=== PATIENT | female | born 1975 | race Caucasian/White ===

== ENCOUNTER → 2017-02-12 | Outpatient (CLI) | payer OTHER ==
[2017-02-12 12:54] VITALS: BP 146/78; PULSE 95; RESP 20; TEMP 98; BMI 51.0
[2017-02-12 14:58] LABS: HCT 42.4 % (34.0-46.0); HGB 13.6 gm/dL (11.4-16.0); MCH 28.7 pg (25.0-35.0); MCHC 32.1 g/dL (31.0-37.0); MCV 89.3 fL (80.0-100.0); Platelet Count 221 k/uL (150-450); RBC 4.75 m/uL (3.80-5.40); RDW 14.9 % (11.5-15.5); WBC 5.2 k/uL (3.8-10.6)
[2017-02-12 15:08] LABS: ALT 33 U/L (9-52); AST 21 U/L (14-36); Albumin 4.1 g/dL (3.5-5.0); Alkaline Phosphatase 52 U/L (38-126); Anion Gap 9 mmol/L; Blood Urea Nitrogen 14 mg/dL (7-17); Calcium 9.1 mg/dL (8.4-10.2); Carbon Dioxide 24 mmol/L (22-30); Chloride 104 mmol/L (98-107); Cholesterol 188 mg/dL (<200); Glucose 82 mg/dL (74-99); HDL Cholesterol 53 mg/dL (40-60); LDL Cholesterol,Calculated 104 mg/dL (0-99); Potassium 4.4 mmol/L (3.5-5.1); Sodium 137 mmol/L (137-145); Total Bilirubin 0.3 mg/dL (0.2-1.3); Total Protein 7.2 g/dL (6.3-8.2); Triglycerides 154 mg/dL (<150)
[2017-02-12 15:09] LABS: Appearance,Urine Clear (Clear); Bilirubin,Urine Negative (Negative); Blood,Urine Negative (Negative); Color,Urine Yellow; Glucose,Urine (UA) Negative (Negative); Ketones,Urine Trace (Negative); Leukocyte Esterase,Urine Negative (Negative); Nitrite,Urine Negative (Negative); PH, Urine 5.5 (5.0-8.0); Protein,Urine Trace (Negative); Specific Gravity,Urine 1.023 (1.001-1.035); Urobilinogen,Urine <2.0 mg/dL (<2.0)
[2017-02-13 00:06] LABS: Iron Saturation 10.73 (12.00-45.00)
[2017-02-13 00:16] LABS: Folate, Serum 7.9 ng/mL
[2017-02-13 00:28] LABS: Vitamin D 25 Hydroxy 14.4 ng/mL (30.0-100.0)
[2017-02-13 01:59] LABS: Hemoglobin A1C 5.3 % (4.0-6.0)
[2017-02-17 11:27] LABS: Anabasine Urine <2.0 ng/mL (<2.0)
--- NOTE | 2017-04-12 16:34 | P.HPBAR ---
Bariatric H&P - History & Physicial H&P Date: 02/12/17 History & Physicial: Visit/CC: 1st visit Patient initial contact: Initial weight: 130.861 kg Initial weight in pounds: 288.50 Height: 5 ft 3 in Initial BMI: 51.0 Last weight: Current weight: 130.861 kg Current weight in pounds: 288.50 Current BMI: 51.0 Villalba body weight (based on NIH guidelines): 52.163 kg Excess body weight loss: 0.0% The patient is a 41 year-old F who presents for Bariatric Assessment. DATE OF SERVICE: 02/12/2017 REASON FOR CONSULTATION: Initial bariatric evaluation. HISTORY OF PRESENT ILLNESS: The patient is a 41-year-old female who presents with history of long-standing morbid obesity. Her highest weight was 310 pounds for a 5 foot 3 frame. Her ideal body weight is 140 pounds. Her body mass index was 55.0. Today she comes in with moderate weight loss down to 288 pounds. Her lifetime weight loss is 22 pounds. She reports a family history morbid obesity on her father's side. No reports of stomach or esophageal cancer. No reports of DVTs. She denies any active gallbladder problems. She does report chronic lower back pain. She has history of knee pain. She also has sleep apnea. No reports of Crohn's or ulcerative colitis. She has history of chronic diarrhea. She denies any food ALLERGIES. No reports of lupus or multiple sclerosis. She has tried weight loss programs such as Adipex with at most weight loss of 20 pounds. Separately, she often skips breakfast. Her height of 5 foot 3, her ideal body weight is 140 pounds. She is 148 pounds overweight. Body mass index reduced from 55 down to 51.1. PAST MEDICAL HISTORY: 1. Morbid obesity. 2. Body mass index reduced from 55 down to 51.1. 3. Osteoarthritis of the knees. 4. Hypertensive heart disease. 5. Chronic lower back pain. 6. Obstructive sleep apnea. PAST SURGICAL HISTORY: 1. No abdominal surgeries. HOME MEDICATIONS: 1. Motrin. 2. Phentermine ALLERGIES: Denies. SOCIAL HISTORY: No active tobacco use. . FAMILY HISTORY: No family history of ulcerative colitis disease or Crohn's disease. Family history of morbid obesity. No lupus in family. No reports of stomach or esophageal cancer. REVIEW OF ORGAN SYSTEMS: CONSTITUTIONAL: Her height of 5 foot 3, her ideal body weight is 140 pounds. She is 148 pounds overweight. Body mass index reduced from 55 down to 51.1. Her highest weight was 310 pounds for a 5 foot 3 frame. Today she comes in with moderate weight loss down to 288 pounds. HEENT: Denies any active troubles with vision or hearing. No troubles with swallowing. ENDOCRINE: No diabetes. No hypothyroidism. CARDIOVASCULAR: No reports of palpitations or heart attacks or chest pain. History of hypertension. RESPIRATORY: Has daytime somnolence including snoring and sleep apnea. No asthma. GI: Denies any bright red blood per rectum. Does have gastroesophageal reflux disease as described above. MUSCULOSKELETAL: Has lower back pain and joint pain. Has osteoarthritis of the hips and knees. NEURO: No headaches. No seizure disorders. PSYCH: No depression without suicidal ideation. . RHEUMATOLOGIC: No lupus. No rheumatoid arthritis. HEMATOLOGIC: Denies any abnormal bleeding or bruising. No personal history of DVTs. SKIN: No rash. No skin cancer. PHYSICAL EXAM: VITAL SIGNS: Height 5 foot 3 inches, weight 288 pounds. BMI 51.1. Vital Signs Temp 98 F 02/12/17 13:47 Pulse 95 02/12/17 13:47 Resp 20 02/12/17 13:47 BP 146/78 02/12/17 13:47 Pulse Ox GENERAL: Well-developed in no acute distress. HEENT: No scleral icterus. Extraocular movements grossly intact. Hears conversational speech. No nasal drainage. NECK: Supple without lymphadenopathy. CHEST: Nonlabored respirations with equal bilateral excursions. CARDIOVASCULAR: Regular rate and regular rhythm. Distal 2+ pulses. ABDOMEN: Obese, soft, nontender, nondistended. MUSCULOSKELETAL: No clubbing, cyanosis. Gross strength 5/5 distal lower extremities. 1+ pre-tibial pitting edema. NEURO: No focal or lateralizing signs. Cranial nerves 2 through 12 grossly within normal limits. PSYCH: Appropriate affect. Alert and oriented to person, place and time. SKIN: Good skin turgor. Well perfused. ASSESSMENT: 1. Morbid obesity. 2. Body mass index reduced from 55 down to 51.1. 3. Osteoarthritis of the knees. 4. Hypertensive heart disease. 5. Chronic lower back pain. 6. Obstructive sleep apnea. 7. Positive tobacco exposure. 8. Hypertriglyceridemia. 9. Iron deficiency anemia. 10. Vitamin D deficiency. PLAN: 1. Surgical options including a band, gastric bypass, sleeve gastrectomy were described in detail. Alternatives such as gastric balloon including duodenal switch were described. 2. The [place] bariatric surgical collaborative data and outcomes calculator were described with surgical options. 3. Recommend a bariatric metabolic panel to evaluate for micro- including macronutrient deficiencies. 4. For history of daytime somnolence, recommend evaluation and treatment for sleep apnea. 5. Dietary surveillance and counseling was reviewed, I have asked increased protein intake to at least 60 grams daily. Approximately 10% weight loss recommended at least over 6 months down to 280 pounds. She has already lost 22 pounds. 6. Will need cardiac risk assessment. 7. Recommend medical risk assessment. 8. Psych assessment per insurance guidelines. 9. Follow up upon completion of upper endoscopy. 10. Recommend food journal. 11. Will need urine drug screen per insurance guidelines. 12. Recommend 12-lead EKG with history of hypertensive heart disease. 13. Recommend upper endoscopy for history of esophageal reflux disease. Thank you for this consultation. Laboratory Last Values WBC 5.2 k/uL (3.8-10.6) 02/12/17 14:28 RBC 4.75 m/uL (3.80-5.40) 02/12/17 14:28 Hgb 13.6 gm/dL (11.4-16.0) 02/12/17 14:28 Hct 42.4 % (34.0-46.0) 02/12/17 14:28 MCV 89.3 fL (80.0-100.0) 02/12/17 14:28 MCH 28.7 pg (25.0-35.0) 02/12/17 14:28 MCHC 32.1 g/dL (31.0-37.0) 02/12/17 14:28 RDW 14.9 % (11.5-15.5) 02/12/17 14:28 Plt Count 221 k/uL (150-450) 02/12/17 14:28 Sodium 137 mmol/L (137-145) 02/12/17 14:28 Potassium 4.4 mmol/L (3.5-5.1) 02/12/17 14:28 Chloride 104 mmol/L (98-107) 02/12/17 14:28 Carbon Dioxide 24 mmol/L (22-30) 02/12/17 14:28 Anion Gap 9 mmol/L 02/12/17 14:28 BUN 14 mg/dL (7-17) 02/12/17 14:28 Creatinine 0.80 mg/dL (0.52-1.04) 02/12/17 14:28 Est GFR (MDRD) Af Amer >60 (>60 ml/min/1.73 sqM) 02/12/17 14:28 Est GFR (MDRD) Non-Af >60 (>60 ml/min/1.73 sqM) 02/12/17 14:28 Glucose 82 mg/dL (74-99) 02/12/17 14:[address] Glu mg/dL 105 02/12/17 14:28 Hemoglobin A1c 5.3 % (4.0-6.0) 02/12/17 14:28 Calcium 9.1 mg/dL (8.4-10.2) 02/12/17 14:28 Iron 44 ug/dL (50-170) L 02/12/17 14:28 TIBC 410 ug/dL (228-460) 02/12/17 14:28 Iron Saturation 10.73 (12.00-45.00) L 02/12/17 14:28 Ferritin 11.4 ng/mL (10.0-291.0) 02/12/17 14:28 Total Bilirubin 0.3 mg/dL (0.2-1.3) 02/12/17 14:28 AST 21 U/L (14-36) 02/12/17 14:28 ALT 33 U/L (9-52) 02/12/17 14:28 Alkaline Phosphatase 52 U/L (38-126) 02/12/17 14:28 Total Protein 7.2 g/dL (6.3-8.2) 02/12/17 14:28 Albumin 4.1 g/dL (3.5-5.0) 02/12/17 14:28 Triglycerides 154 mg/dL (<150) H 02/12/17 14:28 Cholesterol 188 mg/dL (<200) 02/12/17 14:28 LDL Cholesterol, Calc 104 mg/dL (0-99) H 02/12/17 14:28 HDL Cholesterol 53 mg/dL (40-60) 02/12/17 14:28 Vitamin B1 39 ug/L (38-122) 02/12/17 14:28 Vitamin B12 270.0 pg/mL (200.0-944.0) 02/12/17 14:28 Vitamin D 25-Hydroxy 14.4 ng/mL (30.0-100.0) L 02/12/17 14:28 Folate 7.9 ng/mL 02/12/17 14:28 TSH 2.480 mIU/L (0.465-4.680) 02/12/17 14:28 Urine Color Yellow 02/12/17 14:28 Urine Appearance Clear (Clear) 02/12/17 14:28 Urine pH 5.5 (5.0-8.0) 02/12/17 14:28 Ur Specific [place] 1.023 (1.001-1.035) 02/12/17 14:28 Urine Protein Trace (Negative) H 02/12/17 14:28 Urine Glucose (UA) Negative (Negative) 02/12/17 14:28 Urine Ketones Trace (Negative) H 02/12/17 14:28 Urine Blood Negative (Negative) 02/12/17 14:28 Urine Nitrite Negative (Negative) 02/12/17 14:28 Urine Bilirubin Negative (Negative) 02/12/17 14:28 Urine Urobilinogen <2.0 mg/dL (<2.0) 02/12/17 14:28 Ur Leukocyte Esterase Negative (Negative) 02/12/17 14:28 Urine Cotinine 7.2 ng/mL (<5.0) H 02/12/17 14:28 Urine Nicotine 18.4 ng/mL (<2.0) H 02/12/17 14:28 Urine Anabasine <2.0 ng/mL (<2.0) 02/12/17 14:28 EKG EKG PERFORMED 02/12/17 14:28 Miscellaneous Test DrugScrn,Pain Manage 02/12/17 14:28 Misc Test Result See comment 02/12/17 14:28 Urine cotinine is positive. She will need strict tobacco cessation. She has hyper triglyceridemia. Recommend vitamin D supplementation for vitamin D deficiency. Recommend iron supplement for iron deficiency anemia. Past Medical History Past Medical History: No Reported History History of Any Multi-Drug Resistant Organisms: None Reported Past Surgical History: No Surgical Hx Reported Past Anesthesia/Blood Transfusion Reactions: No Reported Reaction Past Psychological History: No Psychological Hx Reported Smoking Status: Never smoker Past Alcohol Use History: None Reported Past Drug Use History: None Reported Surgical - Exam Vital Signs Temp Pulse Resp BP 98 F 95 20 146/78 02/12/17 12:50 02/12/17 12:50 02/12/17 12:50 02/12/17 12:50 Results - Labs 02/12/17 14:28 02/12/17 14:28 Bariatric Checklist Checklist: Plan: Checklist: EGD: 1. Hiatal hernia: 2. H. Pylori: HgbA1c: Vitamin D: Smoking: Never smoker Primary care physician referral: Dr Hoang Psychiatry clearance: Cardiology clearance: Sleep study: Diet journal: VTE risk score: VTE risk level: Rehab needs at discharge:
== END | disposition home or self-care (01) ==
LOC: BARWHC3 12:24
PROVIDERS: ATTEND Surgery Plastic and Reconstructive Surgery
DX: Z48.815 Encounter for surgical aftercare following surgery on the digestive system (principal); E66.01 Morbid (severe) obesity due to excess calories; M17.0 Bilateral primary osteoarthritis of knee; I11.9 Hypertensive heart disease without heart failure; M54.5 Low back pain; G89.29 Other chronic pain; G47.33 Obstructive sleep apnea (adult) (pediatric); E78.1 Pure hyperglyceridemia; D50.9 Iron deficiency anemia, unspecified; E55.9 Vitamin D deficiency, unspecified; E89.1 Postprocedural hypoinsulinemia; D50.8 Other iron deficiency anemias; E44.0 Moderate protein-calorie malnutrition; G47.30 Sleep apnea, unspecified; Z68.43 Body mass index [BMI] 50.0-59.9, adult; Z79.1 Long term (current) use of non-steroidal anti-inflammatories (NSAID); Z79.899 Other long term (current) drug therapy
CPT/HCPCS: 84425; 80061; 80053; 82607; 82728; 82746; 83540; 83550; 84443; 85027; 81003; 82306; 80307; 83036; 93005; 36415; G0480 ×2; G0463; 80323; 80356; 99201

== ENCOUNTER 2017-04-15 09:31 | Day surgery (SDC) | payer OTHER ==
[2017-04-10 15:26] VITALS: BMI 49.6
[~2017-04-15 09:31] MED LIST: LACTATED RINGERS 1,000 ML IV SCH; LIDOCAINE 1% 20 ML VIAL (10MG/ML) FOR IV START INTRADERMA PRN
[2017-04-15 09:56] VITALS: TEMP 97.8
[2017-04-15] MEDS ORDERED: LIDOCAINE 1% INJ 10MG/ML (20 ML MDV) ONE (10:52)
[2017-04-15] MEDS ORDERED: PROPOFOL 10 MG/ML 20 ML VIAL IV ONE (10:52)
--- NOTE | 2017-04-15 11:06 | P.GSHP ---
History of Present Illness H&P Date: 04/15/17 CHIEF COMPLAINT: GERD HISTORY OF PRESENT ILLNESS: The patient is a 41-year-old female who presents reports gastroesophageal reflux disease. Upper endoscopy was offered for further evaluation and management. PAST MEDICAL HISTORY: Please see list. PAST SURGICAL HISTORY: Please see list. MEDICATIONS: Please see list. ALLERGIES: Please see list. SOCIAL HISTORY: No illicit drug use FAMILY HISTORY: No reports of Crohn disease or ulcerative colitis. REVIEW OF ORGAN SYSTEMS: CONSTITUTIONAL: No reports of fevers or chills. GI: Denies any blood in stools or constipation. PHYSICAL EXAM: VITAL SIGNS: Stable GENERAL: Well-developed and pleasant in no acute distress. HEENT: No scleral icterus. Extraocular movements grossly intact. Moist buccal mucosa. NECK: Supple without lymphadenopathy. CHEST: Unlabored respirations. Equal bilateral excursions. CARDIOVASCULAR: Regular rate and rhythm. Distal 2+ pulses. ABDOMEN: Soft, nondistended. MUSCULOSKELETAL: No clubbing, cyanosis, or edema. ASSESSMENT: 1. Gastroesophageal reflux disease PLAN: 1. Recommend proceeding with an upper endoscopy Past Medical History Past Medical History: No Reported History History of Any Multi-Drug Resistant Organisms: None Reported Past Surgical History: No Surgical Hx Reported Past Anesthesia/Blood Transfusion Reactions: No Reported Reaction Smoking Status: Never smoker - Past Family History Mother Family Medical History: No Reported History Medications and Allergies Home Medications Medication Instructions Recorded Confirmed Type Phentermine HCl [Adipex-P] 37.5 mg PO DAILY 02/12/17 04/15/17 History Ibuprofen [Motrin] 800 mg PO DAILY PRN 04/10/17 04/15/17 History Allergies Allergy/AdvReac Type Severity Reaction Status Date / Time No Known Allergies Allergy Verified 04/15/17 09:40 Surgical - Exam Vital Signs Temp Pulse Resp BP Pulse Ox 97.8 F 86 18 148/92 97 04/15/17 09:55 04/15/17 09:55 04/15/17 09:55 04/15/17 09:55 04/15/17 09:55
--- NOTE | 2017-04-15 11:10 | P.PCN ---
Date of Procedure: 04/15/17 Description of Procedure: PREOPERATIVE DIAGNOSIS: Gastroesophageal reflux disease. Morbid obesity. POSTOPERATIVE DIAGNOSIS: Morbid obesity. Gastroesophageal reflux disease. Duodenitis. OPERATION: Esophagogastroduodenoscopy with biopsies along antrum. SURGEON: Theresa Parsons MD ANESTHESIA: MAC. INDICATIONS: The patient is a 41-year-old female who presents with a history of reflux disease. Benefits and risks of the procedure were described. Informed consent was obtained. DESCRIPTION: The patient was brought into the endoscopy suite and laid in the left lateral decubitus position. An Olympus gastroscope was passed along the posterior oropharynx down to the distal esophagus where the squamocolumnar junction was encountered at 39 cm from the incisors. The stomach was entered and no bile reflux was found. Additional findings are listed below. Biopsies with cold forceps were obtained of the antrum. The first through third portion of the duodenum was examined and remarkable for mild duodenitis. Retroflexion of the scope confirmed Hill grade 1 lower esophageal valve. The squamocolumnar junction demostrated no moderate LA grade A erosive esophagitis. The stomach was desufflated. The patient tolerated the procedure well. FINDINGS: Squamocolumnar junction 39 cm from the incisors. Diaphragmatic hiatus at 39 cm. Hiatal hernia 4 cm. Hill grade 1 lower esophageal valve. No moderate LA grade A erosive esophagitis. Mild active duodenitis. RECOMMENDATIONS: Upper endoscopy as needed. Plan - Discharge Summary New Discharge Prescriptions: No Action Phentermine HCl [Adipex-P] 37.5 mg PO DAILY Ibuprofen [Motrin] 800 mg PO DAILY PRN PRN Reason: Pain Discharge Medication List Phentermine HCl [Adipex-P] 37.5 mg PO DAILY 02/12/17 [History] Ibuprofen [Motrin] 800 mg PO DAILY PRN 04/10/17 [History]
[2017-04-15 11:30] VITALS: BP 139/92; PULSE 72; RESP 16
== END 2017-04-15 11:50 | disposition home or self-care (01) ==
LOC: ORWHC2ENDO 09:31
PROVIDERS: ATTEND Surgery Plastic and Reconstructive Surgery
DX: K29.80 Duodenitis without bleeding (principal); K21.9 Gastro-esophageal reflux disease without esophagitis; E66.01 Morbid (severe) obesity due to excess calories; Z68.42 Body mass index [BMI] 45.0-49.9, adult; Z79.899 Other long term (current) drug therapy
CPT/HCPCS: 81025; 88305; 88342; 43239; J2001; J2704

== ENCOUNTER → 2017-05-13 | Outpatient (CLI) | payer OTHER ==
[2017-05-13 14:43] VITALS: BP 166/92; PULSE 98; RESP 16; TEMP 98.2; BMI 50.8
--- NOTE | 2017-07-20 17:20 | P.PN ---
Subjective Progress Note Date: 05/13/17 DATE OF SERVICE: 05/13/2017 CHIEF COMPLAINT: Bariatric evaluation HISTORY OF PRESENT ILLNESS: The patient is a 42-year-old female who presents with history of long-standing morbid obesity. She first presented to [facility] January 2017. Her highest weight was 310 pounds for a 5 foot 3 frame. Her ideal body weight is 140 pounds. Her body mass index was 55.0. Today she comes in with moderate weight loss down to 287 pounds. Her lifetime weight loss is 23 pounds. She has lost another 1 pounds since her visit 3 months ago. Her goal weight is 280 pounds for 10% weight loss. She she has tobacco exp she is looking to gastric bypass. She has developed hypertension including sleep apnea as a result of her obesity. At her height of 5 foot 3, her ideal body weight is 140 pounds. She is 147 pounds overweight. Body mass index reduced from 55 down to 50.9.. PAST MEDICAL HISTORY: 1. Morbid obesity. 2. Body mass index previous 55. 3. Osteoarthritis of the knees. 4. Hypertensive heart disease. 5. Chronic lower back pain. 6. Obstructive sleep apnea. PAST SURGICAL HISTORY: 1. No abdominal surgeries. 2. Upper endoscopy HOME MEDICATIONS: 1. Motrin. 2. Phentermine ALLERGIES: Denies. SOCIAL HISTORY: No active tobacco use. Second hand tobacco exposure. FAMILY HISTORY: No family history of ulcerative colitis disease or Crohn's disease. Family history of morbid obesity. No lupus in family. No reports of stomach or esophageal cancer. REVIEW OF ORGAN SYSTEMS: CONSTITUTIONAL: Her height of 5 foot 3, her ideal body weight is 140 pounds. She is 147 pounds overweight. Body mass index reduced from 55 down to 50.9. Her highest weight was 310 pounds for a 5 foot 3 frame. Today she comes in with moderate weight loss down to 287 pounds. HEENT: Denies any active troubles with vision or hearing. No troubles with swallowing. ENDOCRINE: No diabetes. No hypothyroidism. CARDIOVASCULAR: No reports of palpitations or heart attacks or chest pain. History of hypertension. RESPIRATORY: Has daytime somnolence including snoring and sleep apnea. No asthma. GI: Denies any bright red blood per rectum. Does have gastroesophageal reflux disease as described above. MUSCULOSKELETAL: Has lower back pain and joint pain. Has osteoarthritis of the hips and knees. NEURO: No headaches. No seizure disorders. PSYCH: No depression without suicidal ideation. . RHEUMATOLOGIC: No lupus. No rheumatoid arthritis. HEMATOLOGIC: Denies any abnormal bleeding or bruising. No personal history of DVTs. SKIN: No rash. No skin cancer. PHYSICAL EXAM: VITAL SIGNS: Height 5 foot 3 inches, weight 287 pounds. BMI 50.9. Vital Signs Temp 98.2 F 05/13/17 14:37 Pulse 98 05/13/17 14:37 Resp 16 05/13/17 14:37 BP 166/92 05/13/17 14:37 Pulse Ox GENERAL: Well-developed in no acute distress. HEENT: No scleral icterus. Extraocular movements grossly intact. Hears conversational speech. No nasal drainage. NECK: Supple without lymphadenopathy. CHEST: Nonlabored respirations with equal bilateral excursions. CARDIOVASCULAR: Regular rate and regular rhythm. Distal 2+ pulses. ABDOMEN: Obese, soft, nontender, nondistended. MUSCULOSKELETAL: No clubbing, cyanosis. Gross strength 5/5 distal lower extremities. No pre-tibial pitting edema. NEURO: No focal or lateralizing signs. Cranial nerves 2 through 12 grossly within normal limits. PSYCH: Appropriate affect. Alert and oriented to person, place and time. SKIN: Good skin turgor. Well perfused. EGD FINDINGS: Squamocolumnar junction 39 cm from the incisors. Diaphragmatic hiatus at 39 cm. No hiatal hernia. Hill grade 1 lower esophageal valve. No moderate LA grade A erosive esophagitis. Mild active duodenitis. PATHOLOGY: Final Pathologic Diagnosis GASTRIC MUCOSA, ANTRUM (ENDOSCOPIC BIOPSY): NO SIGNFICANT DIAGNOSTIC ALTERATIONS. NO HELICOBACTER-LIKE ORGANISMS ARE IDENTIFIED BY IMMUNOSTAIN (CONTROLS APPROPRIATE). LABS: Previous labs reviewed Urine nicotine positive passive tobacco exposure Vitamin D low Triglycerides elevated LDL elevated Iron low EKG: Normal sinus rhythm ASSESSMENT: 1. Morbid obesity. 2. Body mass index reduced from 55 down to 50.9. 3. Osteoarthritis of the knees. 4. Hypertensive heart disease. 5. Chronic lower back pain. 6. Obstructive sleep apnea. 7. Positive tobacco exposure. 8. Hypertriglyceridemia. 9. Iron deficiency anemia. 10. Vitamin D deficiency. 11. Dietary surveillance and counseling PLAN: 1. Recommend correction of vitamin D, 10,000 units daily 2. Recommend iron supplement daily 3. Continue dietary surveillance and counseling goal weight of 280 pounds. Protein intake 75 g daily advised. 4. Will need repeat urine nicotine test including tobacco free environment
== END | disposition home or self-care (01) ==
LOC: BARWHC3 13:57
PROVIDERS: ATTEND Surgery Plastic and Reconstructive Surgery
DX: Z48.815 Encounter for surgical aftercare following surgery on the digestive system (principal); E66.01 Morbid (severe) obesity due to excess calories; M17.0 Bilateral primary osteoarthritis of knee; I11.9 Hypertensive heart disease without heart failure; I50.9 Heart failure, unspecified; G89.29 Other chronic pain; M54.5 Low back pain; G47.33 Obstructive sleep apnea (adult) (pediatric); Z77.22 Contact with and (suspected) exposure to environmental tobacco smoke (acute) (chronic); E78.1 Pure hyperglyceridemia; D50.9 Iron deficiency anemia, unspecified; E55.9 Vitamin D deficiency, unspecified; Z71.3 Dietary counseling and surveillance; Z79.1 Long term (current) use of non-steroidal anti-inflammatories (NSAID); Z79.899 Other long term (current) drug therapy; Z68.43 Body mass index [BMI] 50.0-59.9, adult
CPT/HCPCS: 99211

== ENCOUNTER → 2017-07-17 | Outpatient (CLI) | payer OTHER ==
[2017-07-17 15:24] LABS: Basophils % (A) 1 %; Eosinophils # (A) 0.3 k/uL (0-0.7); Eosinophils % (A) 6 %; HCT 40.9 % (34.0-46.0); HGB 14.2 gm/dL (11.4-16.0); Lymphocytes # (A) 1.5 k/uL (1.0-4.8); Lymphocytes % (A) 32 %; MCH 29.4 pg (25.0-35.0); MCHC 34.7 g/dL (31.0-37.0); MCV 84.7 fL (80.0-100.0); Mean Platelet Volume 7.8; Monocytes # (A) 0.2 k/uL (0-1.0); Monocytes % (A) 5 %; Neutrophils # (A) 2.6 k/uL (1.3-7.7); Neutrophils % (A) 56 %; Platelet Count 205 k/uL (150-450); RBC 4.84 m/uL (3.80-5.40); RDW 13.6 % (11.5-15.5); WBC 4.7 k/uL (3.8-10.6)
== END | disposition home or self-care (01) ==
LOC: LABPAT 14:50
PROVIDERS: ATTEND Obstetrics & Gynecology
DX: Z01.812 Encounter for preprocedural laboratory examination (principal)
CPT/HCPCS: 36415; 85025

== ENCOUNTER 2017-07-20 11:13 | Day surgery (SDC) | payer OTHER ==
[~2017-07-20 11:13] MED LIST changes: +DEXAMETHASONE SOD PHOSPHATE 10 MG/ML 1 ML VIAL IV ONE; +MIDAZOLAM 2 MG/2 ML VIAL IV PRN; +MORPHINE SULFATE 2 MG/ML SYRINGE IV PRN; +ONDANSETRON ODT 4 MG TAB PO ONE; +Pre Op ABX Message 1 EACH MISC MISCELLANE ONE; +SCOPOLAMINE 1.5MG/72HR PATCH TRANSDERM ONE; +fentaNYL (PF) 50 MCG/ML 2 ML AMP IV PRN
[2017-07-20 11:40] VITALS: RESP 20; TEMP 97.5
[2017-07-20] MEDS ORDERED: fentaNYL (PF) 50 MCG/ML 2 ML AMP ONE (12:43)
[2017-07-20] MEDS ORDERED: LIDOCAINE 1% INJ 10MG/ML (20 ML MDV) ONE (12:43)
[2017-07-20] MEDS ORDERED: PROPOFOL 10 MG/ML 20 ML VIAL IV ONE (12:43)
[2017-07-20] MEDS ORDERED: MIDAZOLAM 2 MG/2 ML VIAL ONE (12:43)
--- NOTE | 2017-07-20 13:07 | P.OP ---
Date of Procedure: 07/20/17 Preoperative Diagnosis: Family planning Postoperative Diagnosis: Same Procedure(s) Performed: Exam under anesthesia was ParaGard insertion Anesthesia: MAC Surgeon: Jeremy Palm Estimated Blood Loss (ml): 0 Pathology: none sent Condition: stable Disposition: same day Operative Findings: Mid flexed uterus Description of Procedure: Patient was taken to the operating suite where a general anesthetic was found be adequate. She was prepped and draped in normal sterile fashion placed in dorsal lithotomy position. Initially a speculum was inserted into the vagina and the anterior lip of the cervix identified and grasped with a single-tooth tenaculum. Cervix was then minimally dilated and sounded to 8 cm. ParaGard was then inserted without difficulty and strings were trimmed to approximately 2 cm. All other incidents were then removed sponge lap and needle counts were all correct 2. Patient was then taken to the recovery room in stable and satisfactory condition. Plan - Discharge Summary New Discharge Prescriptions: No Action Phentermine HCl [Adipex-P] 37.5 mg PO DAILY Ibuprofen [Motrin] 800 mg PO DAILY PRN PRN Reason: Pain Discharge Medication List Phentermine HCl [Adipex-P] 37.5 mg PO DAILY 02/12/17 [History] Ibuprofen [Motrin] 800 mg PO DAILY PRN 04/10/17 [History] Follow up Appointment(s)/Referral(s): Jeremy Palm DO [Doctor of Osteopathic Medicine] - 4 Weeks Activity/Diet/Wound Care/Special Instructions: Pelvic rest today. Call for any high temperatures or heavy bleeding. Use backup method for control for next month.
[2017-07-20 13:47] VITALS: BP 135/79; PULSE 62
== END 2017-07-20 14:02 | disposition home or self-care (01) ==
LOC: OR 11:13
PROVIDERS: ATTEND Obstetrics & Gynecology
DX: Z30.014 Encounter for initial prescription of intrauterine contraceptive device (principal); Z79.899 Other long term (current) drug therapy
CPT/HCPCS: 81025; 58300; J2250; J1100; J2001; J3010; J2704

== ENCOUNTER → 2020-06-26 | Outpatient (CLI) | payer OTHER ==
--- NOTE | 2020-06-26 11:33 | ECHOF ---
Referral Reason:B94.8 post covid symptoms, R07.9 chest pain MEASUREMENTS -------- HEIGHT: 162.6 cm WEIGHT: 149.7 kg BP: IVSd: 1.4 cm (0.6 - 1.1) LVIDd: 4.7 cm (3.9 - 5.3) LVPWd: 1.6 cm (0.6 - 1.1) IVSs: 1.5 cm LVIDs: 3.3 cm LVPWs: 1.7 cm LAESV Index (A-L): 19.21 ml/m Ao Diam: 3.1 cm (2.0 - 3.7) AV Cusp: 2.2 cm (1.5 - 2.6) LA Diam: 3.9 cm (2.7 - 3.8) MV EXCURSION: 9.957 mm (> 18.000) MV EF SLOPE: 108 mm/s (70 - 150) EPSS: 0.7 cm MV E Gera: 0.95 m/s MV DecT: 277 ms MV A Gera: 1.02 m/s MV E/A Ratio: 0.93 RAP: 5.00 mmHg RVSP: 11.42 mmHg FINDINGS -------- This was a technically adequate study. The left ventricular size is normal. There is moderate concentric left ventricular hypertrophy. O verall left ventricular systolic function is normal with, an EF between 55 - 60 %. The diastolic fi lling pattern is normal for the age of the patient 12.90. The right ventricle is normal in size. The left atrial size is normal. Normal LA size by volume 22+/-6 ml/m2. The right atrial size is normal. Interatrial and interventricular septum intact. The aortic valve was not well visualized. The mitral valve is normal. There is trace mitral regurgitation. The tricuspid valve appears structurally normal. Trace tricuspid regurgitation present. Right ely tricular systolic pressure is normal at < 35 mmHg. The pulmonic valve was not well visualized. The aortic root size is normal. Normal inferior vena cava with normal inspiratory collapse consistent with estimated right atrial pre ssure of 5 mmHg. There is no pericardial effusion. CONCLUSIONS -------- 1. The left ventricular size is normal. 2. There is moderate concentric left ventricular hypertrophy. 3. Overall left ventricular systolic function is normal with, an EF between 55 - 60 %. 4. The diastolic filling pattern is normal for the age of the patient 12.90 5. There is trace mitral regurgitation. 6. Trace tricuspid regurgitation present. 7. There is no pericardial effusion. ROUND [employer]IL[employer] DRAWER: Elizabeth Saravia RDCS
== END | disposition home or self-care (01) ==
LOC: RADECHMAIN 10:56
PROVIDERS: ATTEND Family Medicine
DX: I51.7 Cardiomegaly (principal); B94.8 Sequelae of other specified infectious and parasitic diseases
CPT/HCPCS: 93306

== ENCOUNTER → 2020-08-13 | Outpatient (CLI) | payer OTHER ==
--- NOTE | 2020-08-14 09:25 | MM ---
Reason for exam: screening (asymptomatic). Baseline mammogram. History: Family history of breast cancer in maternal cousin at age 48. Took hormonal contraceptives for 10 years. Physical Findings: Nurse did not find any significant physical abnormalities on exam. MG Screening Mammo w CAD Bilateral CC, MLO, and ML view(s) were taken. There are scattered fibroglandular densities. These results were verbally communicated with the patient and result sheet given to the patient on 08/13/20. ASSESSMENT: Benign, BI-RAD 2 RECOMMENDATION: Routine screening mammogram of both breasts in 1 year.
== END | disposition home or self-care (01) ==
LOC: RADMAMWWP 13:03
PROVIDERS: ATTEND Family Medicine
DX: Z12.31 Encounter for screening mammogram for malignant neoplasm of breast (principal); Z80.3 Family history of malignant neoplasm of breast
CPT/HCPCS: 77067

== ENCOUNTER → 2021-06-18 | Outpatient (CLI) | payer OTHER ==
--- NOTE | 2021-06-18 12:27 | CT ---
EXAMINATION TYPE: CT angio chest DATE OF EXAM: 06/18/2021 COMPARISON: CT dated 06/01/2020 HISTORY: Thoracic aortic aneurysm without rupture CT DLP: 1320.8 mGy.cm. Automated Exposure Control for Dose Reduction was Utilized. TECHNIQUE AND CONTRAST: CTA scan of the thorax is performed without and with IV Contrast, patient injected with 100 mL of Iso gillian 370, thoracic aortogram protocol. MIP and 3-D Images are created on an independent workstation and reviewed. FINDINGS: Motion artifacts. Dilated ascending aorta measuring up to 4 cm. Otherwise unremarkable remainder of t he thoracic and upper abdominal aorta. Patent major mediastinal arteries and upper abdominal arteries . Dilated pulmonary trunk measuring up to 4.1 cm suggestive of pulmonary hypertension. No major or ce ntral pulmonary embolism. No gross cardiomegaly. Minimal pericardial fluid, Unremarkable lungs. Patent central airways. No pleu ral effusion. No pathologically enlarged lymph nodes in the chest. Unremarkable upper abdomen. Sclero tic areas are seen in the upper and midthoracic spine, likely degenerative. No aggressive bone lesion . IMPRESSION: Dilated ascending aorta measuring up to 4 cm with dilated pulmonary trunk measuring up to 4.1 cm sugg estive of pulmonary hypertension. Recommend clinical correlation and vascular surgery consultation. O ther incidental findings as described above.
== END | disposition home or self-care (01) ==
LOC: RADCTMAIN 09:01
PROVIDERS: ATTEND Surgery
DX: I71.2 Thoracic aortic aneurysm, without rupture (principal)
CPT/HCPCS: 71275; Q9967

== ENCOUNTER → 2023-08-11 | Outpatient (CLI) | payer OTHER ==
--- NOTE | 2023-08-11 14:25 | CT ---
EXAMINATION TYPE: CT angio chest DATE OF EXAM: 08/11/2023 COMPARISON: 06/18/2021 HISTORY: THORACIC AORTA ANEURYM CT DLP: 1498.2 mGycm CONTRAST: CTA thoracic aorta with 3-D reconstruction is performed and with IV Contrast, patient injected with 1 00 mL of Isovue 370. Contrast CTA of the thoracic aorta was performed from the lung apex through the upper abdomen. 3D re construction imaging obtained at a separate workstation. CT Chest: THORACIC AORTA: Ascending thoracic aortic aneurysm is stable at 4 cm AP dimension versus 4 cm previou sly. No complicating factors noted. Mild atheromatous changes seen. There is no evidence for dissect ion or periaortic collection. LUNGS: The lungs are clear and free of infiltrate or atelectasis. No pulmonary nodule or mass is det ected. No pleural effusion or CT evidence of interstitial lung disease. MEDIASTINUM: Pulmonary arterial hypertension suggested. No evidence for mediastinal hematoma. The heart is not enlarged. No evidence for mediastinal mass or adenopathy. HILAR STRUCTURES: No evidence for mass. No hilar adenopathy is appreciated. OTHER: No significant abnormality. IMPRESSION- 1. Stable uncomplicated ascending thoracic aortic aneurysm. 2. Suggestion of pulmonary arterial hypertension. Correlate clinically.
== END | disposition home or self-care (01) ==
LOC: RADCTMAIN 12:24
PROVIDERS: ATTEND Surgery
DX: I71.60 Thoracoabdominal aortic aneurysm, without rupture, unspecified (principal)
CPT/HCPCS: 71275; Q9967